=== PATIENT | female | born 1960 | race African-American/Black ===

== ENCOUNTER 2017-10-10 01:08 | Inpatient (IN) | payer OTHER ==
--- NOTE | 2017-09-30 14:35 | History & Physical Pre-Op ---
General Information and HPI MD Statement: I have seen and personally examined MOISÉS NASCIMENTO and documented this H&P. The patient is a 57 year old F who presented with a patient stated chief complaint of left sided neck pain posteriorly radiating to her left shoulder with numbness and tingling in her left first and second digit. Source of Information: patient, old records Exam Limitations: no limitations History of Present Illness: Moisés is a 57-year-old female who is complaining of left-sided posterior neck pain, radiating to her left shoulder. She unfortunately had a terrible fall out of her car when she tripped on the car buttrace, landing forward, extending her neck. She is s/p ACDF C5-7 from February,. She does admit to numbness and tingling in her left first and second digit. She rates her pain between a 5- 6/10 in intensity. She does admit to occasional headaches as well. She states her symptoms are worse with movement and activity and improved with rest. She denies any significant right sided symptoms. She does admit to mild dysphagia. 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 Because of Moisés's progressively worsening symptoms and MRI findings, she wants nothing more to do with nonsurgical treatment. She is being consented for a revision anterior cervical decompression fusion C5-C7 with instrumentation and iliac crest bone grafting on 10/10/2017. Allergies/Medications Allergies: Coded Allergies: Penicillins (N/V 10/09/17) oxycodone (N/V 10/09/17) NSAIDS (Non-Steroidal Anti-Inflamma (Mild, GI upset 09/30/17) Home Med list Acetaminophen (Tylenol Extra Strength) 500 MG TABLET 1-2 TAB PO PRN MILD TO MODERATE PAIN (Reported) Albuterol Sulfate (Ventolin Hfa) 90 MCG HFA.AER.AD 1-2 PUF INH AD PRN RESP. ( Reported) Fluticasone Propionate/Salme (Advair Hfa 115-21 Mcg Inhaler) (Unknown Strength) HFA.AER.AD (Unknown Dose) INH DAILY RESP. (Reported) Hydrochlorothiazide 25 MG TABLET 1 TAB PO DAILY BP (Reported) Losartan Potassium (Cozaar) 50 MG TABLET 1 TAB PO DAILY BP (Reported) Multiple Vitamin (Multivitamins) 1 EACH TABLET 1 TAB PO DAILY SUPPLEMENT ( Reported) Sitagliptin Phos/Metformin HCl (Janumet 50-500 MG Tablet) 50 MG-500 MG TABLET 1 TAB PO DAILY DM (Reported) Compliance With Home Meds: GOOD Past History Medical History Neurological: dizziness, vertigo EENT: NONE Cardiovascular: hypertension Respiratory: NONE Gastrointestinal: GERD Hepatic: NONE Renal: NONE Musculoskeletal: chronic back pain, disk herniation, degen joint disease, falls, osteoarthritis, sciatica, spinal stenosis Psychiatric: NONE Endocrine: diabetes Blood Disorders: history of septic shock Cancer(s): NONE 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 . MOTHER (Diabetes Mellitus). ; Cause: Renal failure. BROTHER (Diabetes). SISTER (Diabetes). Psychosocial History Where Do You Live? Home Who Do You Live With? 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 Exam & Diagnostic Data Physical Exam: Height: 5' 4 1/2" Weight: 195lbs. Physical Exam General Appearance Alert, Oriented X3, Cooperative, No Acute Distress Skin No Rashes, No Breakdown, No Significant Lesion HEENT Atraumatic, PERRLA, EOMI, Mucous Membr. moist/pink Neck Supple, No JVD, No thryomegaly, +2 Carotid Pulse wo Bruit Lymphatic Cervical nl Cardiovascular Regular Rate, Normal S1, Normal S2, No Murmurs Lungs Clear to Auscultation Abdomen Normal Bowel Sounds, Soft, No Tenderness, No Masses Neurological Normal Gait, Normal Speech, Strength at 5/5 X4 Ext, Normal Tone, Reflexes 2+ Extremities No Clubbing, No Cyanosis, No Edema Vascular Normal Pulses Medication List Current Psychiatric Med(s): Tylenol 500mg po q 4-6 hrs prn pain Janumet 50/500 1 po BID Losartan 100mg daily Omeprazole 30mg q hs Arcoxia 60mg daily- stopped 09/26 Assessment/Plan Assessment/Plan: Assessment: 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 We discussed the procedure in full detail as well as the pre-and postoperative course, follow-up care, and anticipated recovery. We also discussed the do's and don'ts and postoperative discharge instructions. We discussed the alternatives, benefits, and risks, not to exclude, , paralysis, infection, bleeding, continued pain, failure of the surgery, need for future surgery, DVT, vascular injury, CSF leak, hoarseness, dysphagia, etc., and given these risks, she still wishes to proceed. She is scheduled to follow-up with her primary care physician for preoperative clearance. Moisés admits that she has done well with morphine and Percocet for pain control in the past. Any changes in this patient's plan is based on this patient's outpatient clinical presentation. As Ranked By This Provider Problem List: 1. Hypertension 2. Diabetes 3. Vertigo Copies To: Darnell REY,Luca Padgett MD Review Statement Attending Statement Attending MD Statement: examined this patient, discuss w/resident/PA/COMMISSIONS COORDINATOR, agreed w/resident/PA/COMMISSIONS COORDINATOR, reviewed images
[~2017-10-10] VITALS: Ht 162.6 cm; Wt 86.2 kg
[~2017-10-10 01:08] MED LIST: ADVAIR HFA 115-12 GM INH; COZAAR50 M1 PO; HYDROCHLOROTHIA25 M1 PO; JANUMET 50-5001 EACH PO; JANUVIA 50MG50 MG PO; METFORMIN500 MG PO; MULTIVITAMIN1 TAB PO; MULTIVITAMINS1 EAC9 PO; SERETIDE INH; TYLENOL EXTRA500 M2 PO; VENTOLIN HFA18 GM INH; [UNRECOGNIZED DRUG - OTHER] INH
--- NOTE | 2017-10-10 13:38 | Operative Report ---
Operative/Inv Procedure Report Surgery Date: 10/10/17 Name of Procedure: Anterior cervical inspection of fusion mass C5 6 7. Removal of hardware anterior plate and interdiscal cage C5 6 7. Decompression discectomy and scar tissue removal C5 6. Neuro lysis left C6 nerve root. Anterior plate fixation C5 6. Harvesting of structural tricortical bone graft right anterior iliac crest. Reconstruction of donor graft site with Master graft. His of fluoroscopy. Pre-Operative Diagnosis: Nonunion C5 6 Post-Operative Diagnosis: Same Estimated Blood Loss: 50ml to 100ml Surgeon/Rivet Driver: Darnell REY,Luca Jack M.D. Anesthesia: general endotracheal tube Operative/Procedure Note Note: After adequate general anesthesia was achieved the patient was placed in the supine position with the head turned to the left and the shoulders taped to the side. The previous incision was entered sharply and the dissection was carried through the platysma. A blunt dissection was carefully carried between the neurovascular bundles and visceral structure. The plate was easily identified the plate screws were removed and they were obviously loose. The fusion was inspected and there was gross motion between the cage and inferior aspect of the body of C5. The C5 6 level was solidly fused. The cage was easily removed the endplates were debrided with the high-speed bur and incision was made through the right anterior iliac crest region and carried down medial and lateral to the crest with cautery. Dressing saw was used to collect a tricortical graft after which the wound was irrigated packed with Master graft covered with Gelfoam and closed in layers with absorbable suture with temo in the skin. The dissection in the 56 disc space was carried through the scar tissue which was significant. There was marked congestion on the left side and the foramen at C56 and a neuro lysis of the C6 nerve root was performed. The bone graft was fashioned according to the size of the disc space to be used and tamped into position. An anterior plate was applied with excellent purchase in all 4 screws. The placement of the plate was such to avoid the use of the previous holes. It was rotated slightly counterclockwise. The entire construct was checked in AP and lateral plane and found to be as expected the screws were locked the wound was irrigated there was no evidence of fluid leak a closure of the platysma was performed with absorbable suture the skin was closed with nylon and the patient was placed in a cervical collar taken off the operating table to the stretcher.
--- NOTE | 2017-10-10 14:45 | Patient Discharge Instructions ---
Discharge Instructions General Discharge Information You were seen/treated for: see other instruction sheet linked to paperwork Acute Coronary Syndrome Inclusion Criteria At DC or during hospital stay patient has or had the following: ACS DIAGNOSIS No Discharge Core Measures Meds if any: Prescribed or Continued at Discharge Meds if any: NOT Prescribed or Continued at Discharge Congestive Heart Failure Inclusion Criteria At DC or during hospital stay patient has or had the following: CHF DIAGNOSIS No Discharge Core Measures Meds if any: Prescribed or Continued at Discharge Meds if any: NOT Prescribed or Continued at Discharge Cerebrovascular accident Inclusion Criteria At DC or during hospital stay patient has or had the following: CVA/TIA Diagnosis No Discharge Core Measures Meds if any: Prescribed or Continued at Discharge Meds if any: NOT Prescribed or Continued at Discharge Venous thromboembolism Inclusion Criteria VTE Diagnosis No VTE Type NONE VTE Confirmed by (Test) NONE Discharge Core Measures - Per Current guidelines, there needs to be overlap - treatment for the first 5 days of Warfarin therapy. - If discharged on Warfarin prior to 5 days of - overlap therapy, the patient will need to be - assessed for post discharge needs including - *Post discharge parental anticoagulation - *Warfarin and/or parental anticoagulation education - *Follow up date to check INR post discharge At least 5 days overlap therapy as Inpatient No Meds if any: Prescribed or Continued at Discharge Note: Overlap Therapy is Warfarin and Anticoagulant Meds if any: NOT Prescribed or Continued at Discharge
[2017-10-10] MEDS ORDERED: COLACE100 M1 PO (14:52)
[2017-10-10] MEDS ORDERED: MILK OF MA400 MG/52 PO (14:52)
[2017-10-10] MEDS ORDERED: DULCOLAX10 M1 RC (14:52)
[2017-10-10] MEDS ORDERED: VITAMIN D31000 UNI2 PO (14:52)
[2017-10-10] MEDS ORDERED: PERCOCET 5-3251 EACH PO (14:52)
[2017-10-10] MEDS ORDERED: TYLENOL EXTRA500 M2 PO (14:52)
[2017-10-10] MEDS ORDERED: OS-CAL 500+D31 EAC1 PO (14:52)
--- NOTE | 2017-10-10 14:53 | RADIOLOGY REPORT ---
EXAMINATION: XR CERVICAL SPINE CLINICAL INFORMATION: Anterior cervical disc fusion C5 through C7. COMPARISON: None. TECHNIQUE: Single C-arm fluoroscopic spot radiograph is obtained at the time of the procedure. FINDINGS: There is radiopaque hardware identified at mid to lower cervical spine, suboptimally visualized. The exact location of the hardware is not known. The superiormost part of the hardware appears to be located at the level of C5 and C6. The inferior extent of the hardware is not identified on this limited lateral projection. Followup radiograph as appropriate is recommended. IMPRESSION: Postsurgical changes of cervical spine fusion. The inferior extent of the hardware is not visualized on this suboptimal image. Follow-up radiograph as appropriate is recommended for further full detail evaluation. The full procedural detail as well as the report will be dictated by the performing surgeon Dr. Patrick.
[2017-10-10 15:45] VITALS: BP 124/68
--- NOTE | 2017-10-10 16:51 | PN- Neurosurgical ---
Subjective Subjective: Patient reports postop neck and right hip pain, controlled. Tolerating water. Denies voiding. Denies numbness and parasthesias. Offer no other complaints. Objective Vital Signs and I&Os Vital Signs Date Time Temp Pulse Resp B/P B/P Pulse O2 O2 Flow FiO2 Mean Ox Delivery Rate 10/10 1545 98 Nasal 2.0L Cannula 10/10 1545 98.0 98 18 124/68 98 Nasal 2.0L Cannula Intake & Output 10/10 1600 10/10 0810/10 0000 10/09 1600 10/09 0810/09 0000 Intake Total Output Total Balance Patient 190 lb 195 lb Weight Weight Reported by Patient Measurement Method Physical Exam: Gen - resting comfortably in nad Neck - soft collar in place, dressing c/d/i, no signs of infection or hematoma Cardiac- S1S2 noted Lungs - CTAB, diminished due to body habitus Ext - Right anterior lateral pelvis graft site dressing c/d/, UE/LE nvi B/L, alps in place, no edema or calf tenderness Assessment/Plan Assessment/Plan 57 F POD 0 s/p ACDF C5-6 revision with right anterior iliac crest bone graft Advance to ada diet, IVF Postop abx - clinda x3 Keep c-collar in place Pain regimen prn PT eval DVT ppx - alps, early ambulation Home meds on board TRC, encourage IS Medicine c/s Core Measures Venous Thromboembolism VTE Risk Factors Surgery No Mechanical VTE Prophylaxis d/t N/A MechProphylax Ordered No VTE Pharm Prophylaxis d/t Surgical Contraindication
--- NOTE | 2017-10-10 19:57 | Cons- Medical ---
Dennise Herman [birth year]: General Information and HPI Consulting Request Date of Consult: 10/10/17 Requested By: Luca Patrick MD Reason for Consult: Comanagement Source of Information: patient Exam Limitations: no limitations History of Present Illness: Mrs. Nascimento is a 57 yo lady with PMHx. of HTN, DM, GERD, VERTIGO and Asthma presented to [facility] for a revision anterior cervical decompression fusion C5-C7 with instrumentation and iliac crest bone grafting as the patient was complaining of left-sided neck pain posteriorly radiating to her left shoulder with numbness and tingling in her left first and second digits, procedure done yesterday and the patient tolerated the procedure well. Medical team consulted for comanagement. Patient has no complaints, she tolerated the procedure well, review of system negative Allergies/Medications Allergies: Coded Allergies: Penicillins (N/V 10/09/17) oxycodone (N/V 10/09/17) NSAIDS (Non-Steroidal Anti-Inflamma (Mild, GI upset 09/30/17) Review of Systems Review of Systems Constitutional: Reports: no symptoms. EENTM: Reports: no symptoms. Cardiovascular: Reports: no symptoms. Respiratory: Reports: no symptoms. GI: Reports: no symptoms. Genitourinary: Reports: no symptoms. Musculoskeletal: Reports: joint pain. Skin: Reports: no symptoms. 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 . MOTHER (Diabetes Mellitus). ; Cause: Renal failure. BROTHER (Diabetes). SISTER (Diabetes). Psychosocial History Where Do You Live? Home Who Do You Live With? 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 Exam & Diagnostic Data Last 24 Hrs of Vital Signs/I&O Vital Signs Date Time Temp Pulse Resp B/P B/P Pulse O2 O2 Flow FiO2 Mean Ox Delivery Rate 10/10 2148 98.3 107 19 142/68 96 Room Air 10/10 1848 Room Air 10/10 1545 98 Nasal 2.0L Cannula 10/10 1545 98.0 98 18 124/68 98 Nasal 2.0L Cannula Intake & Output 10/11 0800 10/11 0000 10/10 1600 Intake Total 800 Output Total 200 Balance 600 Intake, IV 400 Intake, Oral 400 Output, Urine 200 Patient 190 lb Weight Weight Reported by Patient Measurement Method Physical Exam General Appearance: well developed/nourished, no apparent distress, alert, awake Head: atraumatic Respiratory: normal breath sounds, chest non-tender, no respiratory distress Cardiovascular: regular rate/rhythm, normal peripheral pulses Extremities: normal inspection, normal capillary refill, no edema Last 24 Hrs of Labs/Ronnie: No labs Assessment/Plan Assessment/Plan Mrs. Nascimento is a 57 yo lady with PMHx. of HTN, DM, GERD, VERTIGO and Asthma presented to [facility] for a revision anterior cervical decompression fusion C5-C7 with instrumentation and iliac crest bone grafting as the patient was complaining of left-sided neck pain posteriorly radiating to her left shoulder with numbness and tingling in her left first and second digits, procedure done yesterday and the patient tolerated the procedure well. Medical team consulted for comanagement. Assessment: #Status post revision anterior cervical decompression fusion C5-C7 with instrumentation and iliac bone grafting #History of hypertension #History of diabetes #History of asthma Plan: * Continue home medication for hypertension * Accu-Chek, continue oral hypoglycemic agent postoperatively (she should be on insulin prior to the surgery, but she was before on oral hypoglycemic agent with no complication) * Repeat BEP tomorrow * TRC/Nebs Problem List: 1. Hypertension 2. Diabetes 3. Status post laminectomy Consult Acknowledgment - Thank you for your consult request. Gray Dumas MD 10/10/17 2222: General Information and HPI Allergies/Medications Home Med List: Acetaminophen (Tylenol Extra Strength) 500 MG TABLET 1 TAB PO TID PRN TEMP>101 Albuterol Sulfate (Ventolin Hfa) 90 MCG HFA.AER.AD 1-2 PUF INH AD PRN RESP. ( Reported) Bisacodyl (Dulcolax) 10 MG SUPP.RECT 1 SUP RC DAILY PRN CONSTIPATION Calcium Carbonate/Vitamin D3 (Os-Wilver 500+D3 Caplet) 500 MG-200 TABLET 1 TAB PO BID BONE HEALTH Cholecalciferol (Vitamin D3) 1,000 UNIT TABLET 1 TAB PO DAILY BONE HEALTH Docusate Sodium (Colace) 100 MG CAPSULE 1 CAP PO BID PRN CONSTIPATION Fluticasone Propionate/Salme (Advair Hfa 115-21 Mcg Inhaler) (Unknown Strength) HFA.AER.AD (Unknown Dose) INH DAILY RESP. (Reported) Hydrochlorothiazide 25 MG TABLET 1 TAB PO DAILY BP (Reported) Losartan Potassium (Cozaar) 50 MG TABLET 1 TAB PO DAILY BP (Reported) Magnesium Hydroxide (Milk Of Magnesia) 400 MG/5 ML ORAL.SUSP 5 ML PO Q8P PRN CONSTIPATION Multiple Vitamin (Multivitamins) 1 EACH TABLET 1 TAB PO DAILY SUPPLEMENT ( Reported) Oxycodone HCl/Acetaminophen (Percocet 5-325 MG Tablet) 5 MG-325 MG TABLET 1-2 TAB PO Q4-6 PRN PAIN Sitagliptin Phos/Metformin HCl (Janumet 50-500 MG Tablet) 50 MG-500 MG TABLET 1 TAB PO DAILY DM (Reported) Assessment/Plan Consult Acknowledgment - Thank you for your consult request. Attending MD Review Statement Attending Statement Attending MD Statement: examined this patient, discuss w/resident/PA/GRINDING MACHINE OPERATOR PORTABLE, agreed w/resident/PA/GRINDING MACHINE OPERATOR PORTABLE, reviewed EMR data (avail), amended to note Attending Assessment/Plan: The patient is a 57 yo female with h/o HTN, DM2 and asthma with h/o chronic back pain, h/o ?septic shock, s/p prior spinal fusion/laminectomy (C5-7- posterior foraminectomy (02/2014), C7-T1 stenosis, who presented with left sided neck pain radiating to her left shoulder. She had a recent fall out of her care and landed with her neck extended. MRI showed significant swelling anterior to her plate as well as non-union of C5-7. She underwent decompression fusion C5-7 with instrumentation and iliac crest bone graft. Post operatively she was drowsy and expressed no complaints. Physical Exam: VS: Vital Signs Date Time Temp Pulse Resp B/P B/P Pulse O2 O2 Flow FiO2 Mean Ox Delivery Rate 10/11 2147 98.3 107 19 142/68 96 Room Air 10/10 1848 Room Air 10/10 1545 98 Nasal 2.0L Cannula 10/10 1545 98.0 98 18 124/68 98 Nasal 2.0L Cannula Intake & Output 10/10 1600 10/10 0800 10/10 0000 Intake Total Output Total Balance Patient 190 lb Weight Weight Reported by Patient Measurement Method Physical Exam: HEENT: heena- dry mucosa Neck: in collar Chest: clear with diminished breath sounds Cor: RRR nl S1, S2 w/o murm Abd: BS+, soft, NT Ext: no edema Neuro: drowsy, but responsive- moving upper and lower extremities and sensory intact Impression/Plan: #S/P Cervical Surgery- as above- prior surgery in past and now re-injury. Plan: Post op care as per orthopedics. #Essential HTN- patient on Losartan/HCTZ. Plan: Will continue meds as BP allows. #DM2- on Sitagliptin/Metformin- usually old Metformin in hospital, however last surgery she continued to take. No acidosis. Plan: Agree with continuing oral agent and follow glucoscans- sliding scale low dose insulin if needed. #Asthma- on albuterol MDI- lungs clear. Plan: Continue albuterol.
[2017-10-10 21:48] VITALS: BP 142/68
[2017-10-11 06:21] VITALS: BP 158/86
--- NOTE | 2017-10-11 08:41 | PN- Medicine Consult ---
[place],[facility] 10/11/17 0841: Assessment/PlanMedical Consult Assessment/Plan Assessment: Mrs. Nascimento is a 57 yo lady with PMHx. of HTN, DM, GERD, VERTIGO and Asthma presented to [facility] for a revision anterior cervical decompression fusion C5-C7 with instrumentation and iliac crest bone grafting as the patient was complaining of left-sided neck pain posteriorly radiating to her left shoulder with numbness and tingling in her left first and second digits, procedure done yesterday and the patient tolerated the procedure well. Medical team consulted for comanagement. Plan: Assessment: #Status post revision anterior cervical decompression fusion C5-C7 with instrumentation and iliac bone grafting #History of hypertension #History of diabetes #History of asthma Plan: * Continue home medication for hypertension * Accu-Chek, continue oral hypoglycemic agent postoperatively * TRC/Nebs Problem List: 1. Hypertension 2. Diabetes 3. Status post laminectomy Subjective Subjective: Patient seen and examined, she offer no complaints except for mild neck pain which is controlled with pain medicine. She mentioned that she has history of passing out with exertion, she has workup done for that which include stress test and echo with unclear etiology, (Last stress test per the patient was last year and last Echo this year, the workup done through her PCP, she has no market research consultant) Prior to this hospitalization she is medically cleared by her PCP. Review of Systems Constitutional: Reports: no symptoms. EENTM: Reports: no symptoms. Cardiovascular: Reports: no symptoms. Respiratory: Reports: no symptoms. Gastrointestinal: Reports: no symptoms. Genitourinary: Reports: no symptoms. Musculoskeletal: Reports: see HPI. Skin: Reports: no symptoms. Neurological/Psychological: Reports: no symptoms. Objective Last 24 Hrs of Vital Signs/I&O Vital Signs Date Time Temp Pulse Resp B/P B/P Pulse O2 O2 Flow FiO2 Mean Ox Delivery Rate 10/11 0821 100 158/86 10/11 0621 98.7 100 20 158/86 95 Room Air 10/10 2148 98.3 107 19 142/68 96 Room Air 10/10 1848 Room Air 10/10 1545 98 Nasal 2.0L Cannula 10/10 1545 98.0 98 18 124/68 98 Nasal 2.0L Cannula Intake & Output 10/11 1600 10/11 0800 10/11 0000 Intake Total 1580 Output Total 1200 800 Balance -1200 780 Intake, IV 700 Intake, Oral 880 Output, Urine 1200 800 Physical Exam General Appearance: well developed/nourished, no apparent distress, alert, awake , comfortable Cardiovascular: regular rate/rhythm, normal peripheral pulses Respiratory: normal breath sounds, chest non-tender, no respiratory distress Abdomen: normal bowel sounds, soft, non-tender Neurologic/Psychiatric: no motor/sensory deficits, awake, alert, oriented x 3 Current Medications: Current Medications Sig/Romeo Start time Last Medication Dose Route Stop Time Status Admin Acetaminophen 650 MG Q4P PRN 10/10 1430 AC PO Acetaminophen 1,000 MG .STK-MED ONE 10/10 1037 DC IV 10/10 1038 Albuterol Sulfate 2 PUF Q6P PRN 10/10 1415 AC INH Bisacodyl 10 MG DAILY NEEDED PRN 10/10 1430 AC NM Calcium 600 MG BID 10/10 2200 AC 10/10 PO 2128 Cholecalciferol 1,000 IU DAILY 10/11 1000 AC 10/11 PO 0821 Clindamycin 600 MG Q8H 10/11 0300 AC 10/11 Dextrose/Water 50 ML IV 10/11 1129 0238 Clindamycin 600 MG IQ8 10/10 1600 DC 10/10 Dextrose/Water 50 ML IV 10/11 0829 1910 Clindamycin 600 MG ONCE 10/10 0000 DC IV 10/10 2359 Docusate Sodium 100 MG BID 10/10 2200 AC 10/11 PO 0821 Fentanyl Citrate 250 MCG .STK-MED ONE 10/10 1036 DC IM 10/10 1037 Fluticasone 2 PUF BID 10/10 2200 AC 10/11 Propionate INH 0827 Hydrochlorothiazide 25 MG DAILY 10/11 1000 AC 10/11 PO 0821 Influenza Virus 0.5 ML ONCE ONE 10/10 1715 DC Vaccine IM 10/10 1716 Insulin Aspart 0 TIDAC 10/10 1700 CAN SC Insulin Aspart 0 TIDAC 10/10 1700 AC 10/11 SC 0821 Insulin Human Regular 0 .STK-MED ONE 10/10 1033 DC .ROUTE Lactated Ringer's 1,000 ML Q10H 10/10 1430 DC 04/06 IV 0238 Losartan Potassium 50 MG DAILY / 1000 AC 04/ PO 0821 Magnesium Hydroxide 30 ML Q8P PRN 10/10 1430 AC PO Metformin HCl 500 MG DAILY 10/11 1000 AC 10/11 PO 0821 Midazolam HCl 2 MG .STK-MED ONE 10/10 1036 DC IM 10/10 1037 Morphine Sulfate 1 MG Q3P PRN 10/10 1430 AC 10/11 IV 0827 Multivitamins 1 TAB DAILY 10/11 1000 AC 10/11 Therapeutic PO 0821 Omeprazole 20 MG DAILY AC 10/11 0700 AC 10/11 PO 0612 Ondansetron HCl 4 MG Q6P PRN 10/10 1430 AC 10/10 IV 1751 Oxycodone/ 1 TAB Q4P PRN 10/10 1430 AC Acetaminophen PO Oxycodone/ 2 TAB Q4P PRN 10/10 1430 AC Acetaminophen PO Scopolamine HBr 0 .STK-MED ONE 10/10 1035 DC TOP Sitagliptin Phosphate 50 MG DAILY 10/11 1000 AC 10/11 PO 0821 Trimethobenzamide HCl 200 MG Q6P PRN 10/10 1430 AC IM Results Last 24 Hrs Lab/Ronnie Results: No labs Gray Dumas MD 10/11/17 2301: Attending MD Review Statement Attending Sign Off Attending Cosign Statement: I have: examined this patient, reviewed avalbl EMR data, discussd w/resident/PA/ [employer]OLDER MACHINE ADJUSTER, discussed mgmt plan w/pt, agreed w/resident/PA/FOLDER MACHINE ADJUSTER, amended to note. Other Findings: The patient was seen and agree with the above assessment and plan. To be discharged today.
--- NOTE | 2017-10-11 10:12 | Surg Short-stay <48hrs Dis Sum ---
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 Removal of hardware anterior plate and interdiscal cage C5 6 7. Decompression discectomy and scar tissue removal C5 6. Neuro lysis left C6 nerve root. Anterior plate fixation C5 6. Harvesting of structural tricortical bone graft right anterior iliac crest. Reconstruction of donor graft site with Master graft. Summary/Significant Findings: Patient is a 57 year old female s/p remote fall requiring ACDF C5-7. 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 She was taken to the OR electively on 10/10/17 and underwent a revision ACDF. She did well post op, and was ultimately transferred to the surgical floor in stable condition. Her diet was advanced, her pain controlled and she was able to void spontaneously. On POD #1, she was tolerated a regular diet and was ambulating without difficulty with her collar in place. She was stable for discharge home, with outpatient follow up [facility] Dr. Patrick as scheduled. Condition at Discharge: stable Discharge Disposition: home or self care Discharge instructions provided to patient/family: Yes Post discharge follow-up plan: Dr. Patrick 2 weeks
[2017-10-11 13:59] VITALS: BP 138/80
== END 2017-10-11 18:38 | DRG 473 ==
LOC: SDA 01:08 → ENRESERV 14:05 → ENTRNSPT 15:22 → EDTRNSPT 15:25 → EDTRNSPTSTS 15:25 → 2NB 15:37 → CMPTRNSPT 15:46 → ENPENDDIS 10-11 11:13 → ENTRNSPT 10-11 18:28 → 2NB 10-11 18:38 → EDTRNSPT 10-11 18:42 → CMPTRNSPT 10-11 18:54
PROC: 0RB30ZZ Excision of Cervical Vertebral Disc, Open Approach (ICD-10-PCS; principal; 2017-10-10)
PROC: 0QB20ZZ Excision of Right Pelvic Bone, Open Approach (ICD-10-PCS; principal; 2017-10-10)
PROC: 01N10ZZ Release Cervical Nerve, Open Approach (ICD-10-PCS; principal; 2017-10-10)
PROC: 0RG10A0 Fusion of Cervical Vertebral Joint with Interbody Fusion Device, Anterior Approach, Anterior Column, Open Approach (ICD-10-PCS; principal; 2017-10-10)
PROC: 0RP104Z Removal of Internal Fixation Device from Cervical Vertebral Joint, Open Approach (ICD-10-PCS; principal; 2017-10-10)
DX: M96.0 Pseudarthrosis after fusion or arthrodesis (principal); E11.9 Type 2 diabetes mellitus without complications; Z47.2 Encounter for removal of internal fixation device; I10 Essential (primary) hypertension; K21.9 Gastro-esophageal reflux disease without esophagitis; M54.2 Cervicalgia; W17.89XA Other fall from one level to another, initial encounter; Y92.410 Unspecified street and highway as the place of occurrence of the external cause; Z88.6 Allergy status to analgesic agent; Z88.5 Allergy status to narcotic agent; Z88.0 Allergy status to penicillin; Z98.1 Arthrodesis status; Z79.51 Long term (current) use of inhaled steroids; Z79.84 Long term (current) use of oral hypoglycemic drugs; M54.9 Dorsalgia, unspecified; R42 Dizziness and giddiness; J45.909 Unspecified asthma, uncomplicated; Y83.8 Other surgical procedures as the cause of abnormal reaction of the patient, or of later complication, without mention of misadventure at the time of the procedure
CPT/HCPCS: 72040; J0131; J1815; J2270; J2405; J3490; J7120; Q2036